=== PATIENT | male | born 1985 | race Caucasian/White ===

== ENCOUNTER → 2019-01-22 | Outpatient (CLI) | payer OTHER ==
--- NOTE | 2019-01-22 11:33 | RADIOLOGY REPORT (SQ) ---
EXAM DESCRIPTION: MRI LUMBAR SPINE WITHOUT COMPLETED DATE/TIME: 01/22/2019 8:38 am REASON FOR STUDY: LOW BACK PAIN (M54.5) M54.5 LOW BACK PAIN COMPARISON: None. TECHNIQUE: Sagittal and Axial imaging includes T1, T2, STIR and gradient echo sequences. Coronal T2/ HASTE imaging. LIMITATIONS: None. FINDINGS: VISUALIZED UPPER ABDOMEN: Limited evaluation. No acute or suspicious findings suggested. SEGMENTATION: No transitional anatomy. The lowest well-developed disc space is labeled L5-S1. ALIGNMENT: Anatomic. VERTEBRAE: Intact. BONE MARROW: Normal. No marrow replacement or reactive changes. DISC SIGNAL: There is loss of normal signal at L2-L3 and L4-L5. Disc heights are well maintained. POSTERIOR ELEMENTS: Generally intact. No pars defect evident. HARDWARE: None in the spine. CORD AND CONUS: Normal in size and signal intensity. Conus at the appropriate level. SOFT TISSUES: No aortic aneurysm seen. No bulky retroperitoneal adenopathy or mass. No paraspinal mas s or fluid. L1-L2: No significant spinal stenosis or exit foraminal stenosis. L2-L3: No significant spinal stenosis or exit foraminal stenosis. L3-L4: No significant spinal stenosis or exit foraminal stenosis. L4-L5: No significant spinal stenosis or exit foraminal stenosis. L5-S1: No significant spinal stenosis or exit foraminal stenosis. LOWER THORACIC: Incompletely imaged. No stenosis seen. SACRUM: Visualized upper sacrum intact. OTHER: No other significant findings. IMPRESSION: Mild desiccation at L2-L3 and L4-L5. No central stenosis or nerve root impingement. TECHNICAL DOCUMENTATION: JOB ID: [id number] [employer]- All Rights Reserved Reading location - IP/workstation name: [email or web address]
== END ==
LOC: RAD 07:33
PROVIDERS: ATTEND Family Medicine
DX: M54.5 Low back pain (principal)
CPT/HCPCS: 72148

== ENCOUNTER 2019-03-17 09:05 | Day surgery (SDC) | payer OTHER ==
[2019-03-17] MEDS ORDERED: ONDANSETRON HCL INJ/PF 4 MG/2 ML SDV ONE (10:52)
[2019-03-17] MEDS ORDERED: FENTANYL CITRATE INJ/PF 100 MCG/2 ML AMPUL ONE (10:53)
[2019-03-17] MEDS ORDERED: MIDAZOLAM 2 MG/2 ML INJ ONE (10:53)
[2019-03-17] MEDS ORDERED: DEXAMETHASONE SOD PHOS INJ 10 MG/1 ML VIAL ONE (10:53)
[2019-03-17] MEDS ORDERED: PROPOFOL INJ 200 MG/20 ML VIAL IV ONE (10:53)
[2019-03-17] MEDS ORDERED: MORPHINE SULFATE 10 MG/ML INJ ONE (10:53)
[2019-03-17] MEDS ORDERED: SUCCINYLCHOLINE CHLORIDE INJ 200 MG/10 ML VIAL ONE (10:54)
[2019-03-17] MEDS ORDERED: CEFAZOLIN 2 GM/D5W RTU 2 GM/50 ML RTUPB IV PRN (11:01)
[2019-03-17] MEDS ORDERED: LIDOCAINE 2%/EPINEPHRINE INJ 1.7 ML CARTRIDGE ONE (11:02)
[2019-03-17] MEDS ORDERED: LIDOCAINE 2%/EPINEPHRINE INJ 20 ML VIAL ONE (11:02)
[2019-03-17] MEDS ORDERED: COCAINE HCL 4% TOPICAL SOLN 4 ML ONE (11:02)
[2019-03-17] MEDS ORDERED: BALANCED SALT IRRIG SOLN COMB2 15 ML BOTTLE ONE (11:07)
[2019-03-17] MEDS ORDERED: DEXMEDETOMIDINE INJ 80 MCG/20 ML VIAL IV ONE (11:12)
[2019-03-17] MEDS: OXYMETAZOLINE HCL 0.05% NASAL SPRAY 15 ML BOTTLE ONE ×2 (11:38→11:49)
[2019-03-17] MEDS ORDERED: OXYCODONE-ACETAMINOPHEN 5-325 MG TABLET ONE (13:23)
--- NOTE | 2019-03-17 13:32 | [facility] OPERATIVE REPORT E ---
[facility] Operative Report NAME: JELANI COOK AGE: 33Y DATE OF SURGERY: 03/17/2019 ROOM: HISTORY: This is a 33-year-old male with a history of nasal dyspnea. Physical exam revealed a nasal septal deviation and inferior turbinate hypertrophy. He presents today for a septoplasty and inferior turbinate reduction. Informed consent was obtained from the patient. PREOPERATIVE DIAGNOSES: 1. Deviated nasal septum. 2. Inferior turbinate hypertrophy. POSTOPERATIVE DIAGNOSES: 1. Deviated nasal septum. 2. Inferior turbinate hypertrophy. PROCEDURES: 1. Nasal septoplasty. 2. Inferior turbinoplasty. SURGEON: NIK CURRY MD ANESTHESIA: General via endotracheal intubation. DESCRIPTION OF PROCEDURE: After receiving informed consent from the patient, he was taken to the operating room and placed supine on the operating table. After successful induction and intubation by Anesthesia, pledgets soaked with 4% cocaine were placed into each nasal cavity for approximately 5 minutes, after which time they were withdrawn and the nasal septum along with the inferior turbinates were injected with 2% Xylocaine with 1:100,000 epinephrine. Pledgets were replaced. The patient was then prepped and draped in a sterile fashion. Pledgets were removed. A 15 blade was used to make a hemitransfixion incision on the left side. This was carried down onto the nasal floor. Next, using the Lamar and then a Jovana elevator, a mucoperichondrial and mucoperiosteal flap was elevated back to the sphenoid rostrum. The osteocartilaginous junction was using the D knife and then a mucoperiosteal flap was elevated on the right side. Next, using Morton scissors, cuts were made in the perpendicular plate of the ethmoid superiorly inferiorly. This deflection was then removed using Jessica. We then carefully elevated mucosa from around a vomer ethmoid spur and using a V chisel this was removed. We then turned our attention anteriorly where a D knife was used to remove an anterior cartilaginous spur, and then a maxillary crest spur was removed using a V chisel. Next, we turned our attention to the caudal septum which was deviated into the right nasal cavity. We extended the dissection on the mucoperichondrial flap anteriorly around the caudal edge of the septum and dissected on the right side of the septum, raising a small mucoperichondrial flap on the right side. This freed the caudal edge of the septum. We then used sutures of 5-0 PDS II to hold the caudal portion of the septum midline. We also made a relaxing incision in the cartilage anteriorly. The septum was then viewed with the flaps in place and found to be relatively straight. The hemitransfixion incision was closed using 4-0 chromic. A 4-0 plain gut whipstitch was used to secure the septal flaps. Next, we turned our attention to the inferior turbinates where using the Celon set on 10 intramural cauterization was performed on each inferior turbinate, and then each inferior turbinate was medialized and lateralized using a Fran elevator with good airways bilaterally. Next, Bah splints coated with Bacitracin were placed into each nasal cavity. They were secured with a 2-0 Prolene. Then, Afrin-soaked pledgets were placed into each nasal cavity. The patient was then given back to Anesthesia who successfully extubated the patient without any complications. Estimated blood loss was about 15 mL, fluids about 800 mL of crystalloid. The patient was then transferred to the postanesthesia care unit in stable condition, spontaneous respirations, no complications. DICTATING PHYSICIAN: NIK CURRY M.D. [id number] CUONG#: [id number] ID: [id number] JOB#: [id number] ACCT: [id number] cc:NIK CURRY MD >
== END 2019-03-17 14:30 | disposition home or self-care (01) ==
LOC: SC 09:05
PROVIDERS: ATTEND Otolaryngology
DX: J34.2 Deviated nasal septum (principal); J34.3 Hypertrophy of nasal turbinates
CPT/HCPCS: 00160; 30520; 30140; J2250; J3490 ×5; J2270; J0330; J2405; J2704; J1100; J0690; 160; J3010

== ENCOUNTER → 2020-01-01 | Outpatient (CLI) | payer OTHER ==
--- NOTE | 2020-01-01 08:31 | RADIOLOGY REPORT (SQ) ---
EXAM DESCRIPTION: MRI LUMBAR SPINE WITHOUT COMPLETED DATE/TIME: 01/01/2020 8:03 am REASON FOR STUDY: BACK PAIN COMPARISON: 01/22/2019 TECHNIQUE: Sagittal and Axial imaging includes T1, T2, STIR and gradient echo sequences. Coronal T2/ HASTE imaging. LIMITATIONS: None. FINDINGS: VISUALIZED UPPER ABDOMEN: Limited evaluation. No acute or suspicious findings suggested. SEGMENTATION: No transitional anatomy. The lowest well-developed disc space is labeled L5-S1. ALIGNMENT: Anatomic. VERTEBRAE: Intact. BONE MARROW: Normal. No marrow replacement or reactive changes. DISC SIGNAL: Loss of normal water signal at L2-L3 and L4-L5. Similar findings were present on prior exam. POSTERIOR ELEMENTS: Generally intact. No pars defect evident. HARDWARE: None in the spine. CORD AND CONUS: Normal in size and signal intensity. Conus at the appropriate level. SOFT TISSUES: No aortic aneurysm seen. No bulky retroperitoneal adenopathy or mass. No paraspinal mas s or fluid. L1-L2: No significant spinal stenosis or exit foraminal stenosis. L2-L3: No significant spinal stenosis or exit foraminal stenosis. L3-L4: No significant spinal stenosis or exit foraminal stenosis. L4-L5: No significant spinal stenosis or exit foraminal stenosis. L5-S1: No significant spinal stenosis or exit foraminal stenosis. LOWER THORACIC: Incompletely imaged. No stenosis seen. SACRUM: Visualized upper sacrum intact. OTHER: No other significant findings. IMPRESSION: Loss of normal signal at L2-L3 and L4-L5. No central stenosis or foraminal narrowing. TECHNICAL DOCUMENTATION: JOB ID: [id number] [employer]- All Rights Reserved Reading location - IP/workstation name: [email or web address]
== END ==
LOC: RAD 07:17
PROVIDERS: ATTEND Family Medicine
DX: M54.9 Dorsalgia, unspecified (principal)
CPT/HCPCS: 72148